=== PATIENT | male | born 1940 | race Caucasian/White ===

== ENCOUNTER 2018-11-10 07:32 | Day surgery (SDC) | payer MEDICARE ==
[2018-11-09 10:32] LABS: BASOPHILS % (AUTO) 0.7 % (0.0-5.0); EOSINOPHILS % (AUTO) 1.2 % (0.0-8.0); HEMATOCRIT 45.1 % (42-54); LYMPHOCYTES % (AUTO) 17.9 % (21.0-51.0); MEAN CORPUSCULAR HGB CONC 33.5 g/dL (32.0-36.0); MEAN CORPUSCULAR VOLUME 92.5 fL (79-99); MONOCYTES % (AUTO) 8.3 % (3.0-13.0); NEUTROPHILS % (AUTO) 71.9 % (40.0-77.0); PLATELET COUNT (AUTO) 193 K/uL (130-400); RED BLOOD CELL COUNT(AUTO) 4.87 MIL/uL (4.50-6.20); RED CELL DISTRIBUTION WIDTH 13.7 % (11.0-15.5); WHITE BLOOD COUNT (AUTO) 7.1 K/uL (4.8-10.8)
[2018-11-09 10:35] LABS: APPEARANCE,URINE Cloudy (CLEAR); BILIRUBIN,URINE Negative (NEGATIVE); COLOR,URINE Dark Yellow (YELLOW); GLUCOSE, URINE (UA) Negative (NEGATIVE); KETONES,URINE Negative (NEGATIVE); LEUKOCYTE ESTERASE ,URINE Negative (NEGATIVE); NITRATE,URINE Negative (NEGATIVE); OCCULT BLOOD,URINE Negative (NEGATIVE); PH,URINE 5.5 (5.0-8.0); PROTEIN,URINE Negative (NEGATIVE)
[2018-11-09 10:36] VITALS: BP 92/52
[2018-11-09 10:55] LABS: CREATININE 1.3 mg/dL (0.5-1.5); POTASSIUM 3.5 mmol/L (3.5-5.1)
[2018-11-09 10:58] LABS: BACTERIA,URINE Rare /HPF (None Seen); MUCUS,URINE Few LPF (None Seen); SQUAMOUS EPITHELIAL CELL,UR Rare /HPF (0-2); WBC,URINE 0-1 /HPF (0-1)
--- NOTE | 2018-11-09 15:20 | NUR ---
EKG NOTIFIED DR. LARSON OF EKG RESULT. PENDING CALL BACK.
[2018-11-10] VITALS (12 sets, daily range): BP systolic 91–114; BP diastolic 47–69
[~2018-11-10] VITALS: Ht 177.8 cm; Wt 91.8 kg
[~2018-11-10 07:32] MED LIST: AMLO10TA7 PO; ASPI-1181 PO; HYDROCHLOROT PO; LISI40TA4 PO
[2018-11-10] MEDS ORDERED: LACTATED RINGERS 1000ML 1,000 ML IV ONE (08:28)
[2018-11-10] MEDS ORDERED: LIDOCAINE PF 2% 5ML ABBOJECT ONE (09:02)
[2018-11-10] MEDS ORDERED: PROPOFOL 10 MG/ML 20ML VIAL IV ONE (09:02)
[2018-11-10] MEDS ORDERED: SUCCINYLCHOLINE 200MG/10ML SYR ONE (09:02)
[2018-11-10] MEDS ORDERED: FENTANYL CITRATE PF 50 MCG/1 ML 2ML VIAL ONE (09:02)
[2018-11-10] MEDS ORDERED: EPHEDRINE SULFATE 50 MG/ML AMPULE ONE (09:38)
[2018-11-10] MEDS ORDERED: MEPERIDINE-PF 25 MG/ML SYG ONE (10:16)
--- NOTE | 2018-11-10 11:35 | NUR ---
PT TOLERATED PROCEDURE WELL, STATED TO PAIN TO INCISION SITE, DRESSING WAS D/I, INSTRUCTED PT TO KEEP DRESSING INTACT UNTIL OFFICE VISIT TOMORROW WITH DR. DAHL. POST CARE INSTRUCTIONS AND PRESCRIPTION GIVEN TO AND PT , BOTH VERBALIZED UNDERSTANDING. PT PLACED IN A WHEELCHAIR , PT DRIVEN HOME BY .
== END 2018-11-10 11:35 | disposition home or self-care (01) ==
LOC: DAH 07:32
PROVIDERS: ATTEND Surgery
DX: C43.59 Malignant melanoma of other part of trunk (principal); Z98.890 Other specified postprocedural states
CPT/HCPCS: 11606; 36415; 80048; 81001; 85025; 88305; 93005; A4450; A4930; J0330; J2001; J2175; J2704; J3010; J3490; J7120